=== PATIENT | male | born 1965 | race Caucasian/White ===

== ENCOUNTER 2019-02-14 06:56 | Emergency (ER) | payer OTHER ==
[2019-02-14 08:33] LABS: Urine Appearance Cloudy; Urine Bilirubin Negative (Negative); Urine Blood 2+ (Negative); Urine Color Yellow; Urine Glucose Negative (Negative); Urine Ketones Negative (Negative); Urine Nitrite Negative (Negative); Urine Protein Negative (Negative); Urine Specific Gravity 1.017 (1.010-1.030); Urine Urobilinogen Negative (Negative)
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
[2019-02-14 08:44] LABS: Urine Bacteria Absent (Absent); Urine Red Blood Cell 3+(>10/hpf) (Absent); Urine White Blood Cell 3+(>20/hpf) (Absent)
[2019-02-14] MEDS ORDERED: Ciprofloxacin TAB* 500 MG PO ONE (08:47)
[2019-02-14 09:09] VITALS: BP 147/89
--- NOTE | 2019-02-16 06:33 | ED ---
Imaging and Labs Follow Up Follow Up Type: Labs/Cultures Labs/Culture Result: Pulmonary urine culture shows greater than 100,000 group B strep. Patient treated with ciprofloxacin which is presumed effective in covering This bacteria. Waiting sensitivity report. Patient Communication/Plan: Patient treated appropriately. Nothing further this time. Provider Diagnoses: Urinary retention, UTI (urinary tract infection)
== END 2019-02-14 09:03 | disposition home or self-care (01) ==
LOC: ED 06:56
DX: N39.0 Urinary tract infection, site not specified (principal); R33.9 Retention of urine, unspecified; E78.00 Pure hypercholesterolemia, unspecified; Z88.0 Allergy status to penicillin; Z88.2 Allergy status to sulfonamides; Z88.8 Allergy status to other drugs, medicaments and biological substances
CPT/HCPCS: 81003; 81015; 87077; 87086; 99282; A9270-GY

== ENCOUNTER 2020-10-01 10:18 | Inpatient (IN) ==
[2020-10-01 10:41] LABS: ABS Basophils 0.1 10^3/ul (0-0.2); ABS Monocytes 0.5 10^3/ul (0-0.8); Eosinophil % 0.4 %; Hematocrit 45 % (42-52); Hemoglobin 15.5 g/dL (14.0-18.0); Lymphocyte % 11.6 %; Mean Corpuscular HGB Conc 34 g/dL (31-36); Mean Corpuscular Hemoglobin 30 pg (27-31); Mean Corpuscular Volume 86 fL (80-94); Mean Platelet Volume 8.1 fL (7.4-10.4); Platelet Count 217 10^3/uL (150-450); Red Blood Count 5.21 10^6 /uL (4.18-5.48); Red Cell Distribution Width 14 % (10-15); White Blood Count 8.7 10^3/uL (3.5-10.8)
[2020-10-01 10:51] LABS: INR 0.97 (0.86-1.15)
[2020-10-01 10:52] LABS: Albumin 4.5 g/dL (3.2-5.2); Anion Gap 10 mmol/L (2-11); CO2 Carbon Dioxide 26 mmol/L (22-32); Calcium 9.9 mg/dL (8.6-10.3); Chloride 101 mmol/L (101-111); Potassium 3.7 mmol/L (3.5-5.0); Sodium 137 mmol/L (135-145)
[2020-10-01 10:58] LABS: ALT 18 U/L (7-52); AST 16 U/L (13-39); Albumin/Globulin Ratio 1.5 (1-3); Alkaline Phosphatase 75 U/L (35-149); Blood Urea Nitrogen 23 mg/dL (6-24); EGFR Non-African American 88.4 (>60); Globulin 3.1 g/dL (2-4); Glucose 142 mg/dL (70-100); Total Protein 7.6 g/dL (6.4-8.9)
[2020-10-01 11:13] LABS: Troponin I 0.04 ng/mL (<0.03)
[2020-10-01] MEDS ORDERED: Ondansetron 4 mg VIAL 2 MG/ML 2 ml VIAL IV ONE ×2 (11:52→13:57)
[2020-10-01] MEDS ORDERED: Al Hydrox/Mg Hydrox/Simet LIQ 30 ML UDC PO ONE (14:08)
[2020-10-01] MEDS ORDERED: Heparin DRIP 25,000 UNITS BAG 25,000 UNITS/500 ML BAG IV SCH (16:00)
[2020-10-01] MEDS ORDERED: Heparin 5000 UNITS/ML 1 mL VIAL IV PRN (16:00)
[2020-10-01] MEDS ORDERED: Ondansetron 4 mg VIAL 2 MG/ML 2 ml VIAL IV PRN (17:23)
[2020-10-01] MEDS ORDERED: Nitro 2% OINT (Nitroglycerin) 1 INCH/PAK ONE (19:09)
[2020-10-01] MEDS ORDERED: Nitro 2% OINT (Nitroglycerin) 1 INCH/PAK TOPICAL ONE ×2 (19:09→19:12)
[2020-10-01] MEDS ORDERED: nitroGLYCERIN DRIP 25,000 MCG/250 ML BTL ONE ×2 (19:45→22:16)
[2020-10-01] MEDS ORDERED: nitroGLYCERIN DRIP 25,000 MCG/250 ML BTL IV SCH (20:00)
[2020-10-01 21:48] LABS: Troponin I 0.11 ng/mL (<0.03)
[2020-10-01] MEDS ORDERED: Metoprolol Tartrate 5 mg VIAL 5 ml VIAL (1 mg/ml) IV ONE (21:53)
[2020-10-01] MEDS ORDERED: Potassium Chlor 10 meq TAB PO ONE (22:13)
[2020-10-01] MEDS ORDERED: fentaNYL 100 mcg/2 ml 50 MCG/ML VIAL ONE (22:15)
[2020-10-01] MEDS ORDERED: Midazolam 5 mg/5 ml VIAL 1 mg/ml 5 ml VIAL (5 mg) ONE (22:15)
[2020-10-01] MEDS ORDERED: Heparin 1,000 UNIT/ML 10 ml (10,000 UNITS) CATHLAB/DIALYSIS ONE (22:16)
[2020-10-01] MEDS ORDERED: Heparin 2 UNITS/ML 1000 mls 2,000 ML IV ONE (22:16)
[2020-10-01] MEDS ORDERED: Lidocaine 1% VIAL 10 MG/ML VIAL ONE (22:16)
[2020-10-01] MEDS ORDERED: VERAPAMIL 2.5 MG/ML 2 ML VIAL ** 5 mg/2 ml ONE (22:16)
[2020-10-01] MEDS ORDERED: Iohexol 350 (CONTRAST) 200 ML MDV IV ONE (22:16)
[2020-10-01 22:19] LABS: INR 1.09 (0.86-1.15)
[2020-10-01 22:39] LABS: Troponin I 0.09 ng/mL (<0.03)
[2020-10-01] MEDS: NS 0.9% 1000 ml BAG 1,000 ML IV SCH (22:56)
[2020-10-01 23:03] LABS: Cholesterol 173 mg/dL; HDL Cholesterol 65.3 mg/dL; LDL Cholesterol 91 mg/dL; Triglycerides 84 mg/dL
[2020-10-01] MEDS ORDERED: Calcium Carb (TUMS) 500 mg CHEW TAB PO PRN (23:21)
[2020-10-02 05:03] LABS: Hematocrit 43 % (42-52); Hemoglobin 14.5 g/dL (14.0-18.0); Mean Corpuscular HGB Conc 34 g/dL (31-36); Mean Corpuscular Hemoglobin 29 pg (27-31); Mean Corpuscular Volume 88 fL (80-94); Mean Platelet Volume 8.1 fL (7.4-10.4); Platelet Count 197 10^3/uL (150-450); Red Blood Count 4.93 10^6 /uL (4.18-5.48); Red Cell Distribution Width 14 % (10-15); White Blood Count 11.4 10^3/uL (3.5-10.8)
[2020-10-02 05:19] LABS: Calcium 8.6 mg/dL (8.6-10.3); EGFR Non-African American 95.8 (>60); HDL Cholesterol 64.4 mg/dL; Potassium 4.1 mmol/L (3.5-5.0)
[2020-10-02 07:45] LABS: Magnesium 1.9 mg/dL (1.9-2.7); Phosphorus 3.2 mg/dL (2.5-5.0)
[2020-10-02] MEDS ORDERED: Dutasteride/Tamsulosin (NF) PO SCH (09:00)
[2020-10-02] MEDS: NS 0.9% 1000 ml BAG 1,000 ML IV SCH (11:18)
[2020-10-02] MEDS ORDERED: Iohexol 350 (CONTRAST) 500 ML MDV IV ONE (14:54)
[2020-10-02] MEDS ORDERED: NS 0.9% 1000 ml BAG 1,000 ML IV ONE (22:24)
[2020-10-02 22:33] LABS: ABS Basophils 0.1 10^3/ul (0-0.2); ABS Lymphocytes 0.6 10^3/ul (1.0-4.8); ABS Monocytes 0.6 10^3/ul (0-0.8); Eosinophil % 0.1 %; Hematocrit 40 % (42-52); Hemoglobin 13.7 g/dL (14.0-18.0); Lymphocyte % 7.3 %; Mean Corpuscular HGB Conc 34 g/dL (31-36); Mean Corpuscular Hemoglobin 30 pg (27-31); Mean Corpuscular Volume 87 fL (80-94); Mean Platelet Volume 8.5 fL (7.4-10.4); Platelet Count 170 10^3/uL (150-450); Red Blood Count 4.63 10^6 /uL (4.18-5.48); Red Cell Distribution Width 14 % (10-15); White Blood Count 8.4 10^3/uL (3.5-10.8)
[2020-10-02 22:51] LABS: Albumin 3.7 g/dL (3.2-5.2); Calcium 8.8 mg/dL (8.6-10.3); Potassium 4.1 mmol/L (3.5-5.0); Total Bilirubin 4.4 mg/dL (0.2-1.0)
[2020-10-02 22:57] LABS: Albumin/Globulin Ratio 1.3 (1-3); EGFR Non-African American 85.1 (>60); Globulin 2.8 g/dL (2-4); Total Protein 6.5 g/dL (6.4-8.9)
[2020-10-02 23:11] LABS: Urine Appearance Clear; Urine Bilirubin Negative (Negative); Urine Blood 1+ (Negative); Urine Color Amber; Urine Glucose Negative (Negative); Urine Ketones Negative (Negative); Urine Nitrite Negative (Negative); Urine Protein 1+(30 mg/dL) (Negative); Urine Specific Gravity 1.039 (1.002-1.030); Urine Urobilinogen Positive (Negative)
[2020-10-02 23:19] LABS: Urine Bacteria Absent (Absent); Urine Red Blood Cell Trace(0-2/hpf) (Absent); Urine Sperm Present (Absent); Urine White Blood Cell Absent (Absent)
[2020-10-02 23:37] LABS: C Reactive Protein 179.8 mg/L (<8.01)
[2020-10-03] MEDS ORDERED: Iohexol 300 (CONTRAST) 10 ML SDV IV ONE (05:07)
[2020-10-03] MEDS: NS 0.9% 1000 ml BAG 1,000 ML IV SCH ×2 (07:41→19:56)
[2020-10-03 08:04] LABS: ABS Eosinophils 0.1 10^3/ul (0-0.6); ABS Lymphocytes 0.7 10^3/ul (1.0-4.8); ABS Monocytes 0.6 10^3/ul (0-0.8); ABS Neutrophils 6.2 10^3/ul (1.5-7.7); Eosinophil % 0.9 %; Hematocrit 37 % (42-52); Hemoglobin 12.8 g/dL (14.0-18.0); Lymphocyte % 9.1 %; Mean Corpuscular HGB Conc 34 g/dL (31-36); Mean Corpuscular Hemoglobin 30 pg (27-31); Mean Corpuscular Volume 87 fL (80-94); Mean Platelet Volume 8.5 fL (7.4-10.4); Platelet Count 149 10^3/uL (150-450); Red Blood Count 4.29 10^6 /uL (4.18-5.48); Red Cell Distribution Width 14 % (10-15); White Blood Count 7.5 10^3/uL (3.5-10.8)
[2020-10-03 08:20] LABS: Albumin 3.4 g/dL (3.2-5.2); Albumin/Globulin Ratio 1.4 (1-3); Calcium 8.3 mg/dL (8.6-10.3); Direct Bilirubin 3.7 mg/dL (0.03-0.18); EGFR African American 109.8 (>60); EGFR Non-African American 90.8 (>60); Globulin 2.4 g/dL (2-4); Indirect Bilirubin 1.6 mg/dL (0.3-1.0); Potassium 3.8 mmol/L (3.5-5.0); Total Bilirubin 5.3 mg/dL (0.2-1.0); Total Protein 5.8 g/dL (6.4-8.9)
[2020-10-03 09:44] LABS: Troponin I 0.09 ng/mL (<0.03)
[2020-10-03] MEDS: cefTRIAXone 2 GM ADDV.VIAL 2 GM in NS 0.9% 100 ml BAG 100 ML IV SCH (10:01)
[2020-10-03] MEDS: metroNIDAZOLE IV 500 MG/100ML 500 MG/100 ML BAG IVPB SCH ×2 (11:12→16:31)
[2020-10-03 20:28] LABS: Hepatitis B Surface Antigen Nonreactive (Nonreactive)
[2020-10-03 20:33] LABS: Hepatitis A Ab IgM Negative (Negative)
[2020-10-03 20:34] LABS: Hepatitis B Core IgM Nonreactive (Nonreactive)
[2020-10-03 20:45] LABS: Hepatitis C Antibody Negative (Negative)
[2020-10-04] MEDS: metroNIDAZOLE IV 500 MG/100ML 500 MG/100 ML BAG IVPB SCH ×4 (01:32→23:56)
[2020-10-04 06:26] LABS: ABS Eosinophils 0.2 10^3/ul (0-0.6); ABS Lymphocytes 0.8 10^3/ul (1.0-4.8); ABS Monocytes 0.5 10^3/ul (0-0.8); ABS Neutrophils 3.9 10^3/ul (1.5-7.7); Eosinophil % 3.5 %; Hematocrit 37 % (42-52); Hemoglobin 12.3 g/dL (14.0-18.0); Lymphocyte % 14.7 %; Mean Corpuscular HGB Conc 34 g/dL (31-36); Mean Corpuscular Hemoglobin 30 pg (27-31); Mean Corpuscular Volume 88 fL (80-94); Mean Platelet Volume 8.5 fL (7.4-10.4); Platelet Count 148 10^3/uL (150-450); Red Blood Count 4.16 10^6 /uL (4.18-5.48); Red Cell Distribution Width 15 % (10-15); White Blood Count 5.4 10^3/uL (3.5-10.8)
[2020-10-04 06:45] LABS: Albumin 3.2 g/dL (3.2-5.2); Albumin/Globulin Ratio 1.2 (1-3); Calcium 8.1 mg/dL (8.6-10.3); EGFR African American 136.6 (>60); EGFR Non-African American 112.9 (>60); Globulin 2.6 g/dL (2-4); Potassium 3.9 mmol/L (3.5-5.0); Total Bilirubin 3.3 mg/dL (0.2-1.0); Total Protein 5.8 g/dL (6.4-8.9)
[2020-10-04] MEDS: cefTRIAXone 2 GM ADDV.VIAL 2 GM in NS 0.9% 100 ml BAG 100 ML IV SCH (08:11)
[2020-10-04] MEDS ORDERED: ceFOXitin 2 GM PREMIX 50 ML IVPB ONE (14:00)
[2020-10-04] MEDS ORDERED: Buffered Lidocaine 1% SYRIN 1 ml INTRADERM ONE (14:39)
[2020-10-04] MEDS ORDERED: DiMENhydriNATE IV 50 mg/ml 1 ml VIAL IV PUSH ONE (14:39)
[2020-10-04] MEDS ORDERED: DiMENhydriNATE IV 50 mg/ml 1 ml VIAL ONE (15:07)
[2020-10-04] MEDS ORDERED: Ondansetron 4 mg VIAL 2 MG/ML 2 ml VIAL ONE (15:38)
[2020-10-04] MEDS ORDERED: Lidocaine 2% PF 5 ML VIAL ONE (15:38)
[2020-10-04] MEDS ORDERED: Rocuronium 50 mg VIAL 10 mg/ml 5 ml VIAL (50 mg) ONE ×2 (15:38→16:00)
[2020-10-04] MEDS ORDERED: Dexamethasone IV 4 MG/ML VIAL 1 ml VIAL ONE (15:38)
[2020-10-04] MEDS ORDERED: Propofol 10 MG/ML 20 ML BTL ONE (15:38)
[2020-10-04] MEDS ORDERED: fentaNYL 250 mcg/5 ml 50 MCG/ML 5 ml VIAL (250 MCG) ONE (15:39)
[2020-10-04] MEDS ORDERED: Midazolam 2 mg/2 ml VIAL 1 mg/ml 2 ml VIAL (2 mg) ONE (15:39)
[2020-10-04] MEDS ORDERED: HYDROmorphone 1 MG/1 ML SYRINGE IV SLOW PU PRN (18:38)
[2020-10-04] MEDS ORDERED: HYDROcodone/ACETAMIN 5/325 mg TAB PO PRN (18:52)
[2020-10-04] MEDS: Lactated Ringers 1000 ml BAG 1,000 ML IV SCH (21:03)
[2020-10-05 05:54] LABS: ABS Lymphocytes 0.5 10^3/ul (1.0-4.8); ABS Monocytes 0.3 10^3/ul (0-0.8); ABS Neutrophils 4.1 10^3/ul (1.5-7.7); Eosinophil % 0.2 %; Hematocrit 37 % (42-52); Hemoglobin 12.5 g/dL (14.0-18.0); Lymphocyte % 10.4 %; Mean Corpuscular HGB Conc 34 g/dL (31-36); Mean Corpuscular Hemoglobin 29 pg (27-31); Mean Corpuscular Volume 87 fL (80-94); Mean Platelet Volume 8.6 fL (7.4-10.4); Platelet Count 159 10^3/uL (150-450); Red Blood Count 4.26 10^6 /uL (4.18-5.48); Red Cell Distribution Width 14 % (10-15); White Blood Count 4.9 10^3/uL (3.5-10.8)
[2020-10-05] MEDS: Lactated Ringers 1000 ml BAG 1,000 ML IV SCH (06:04)
[2020-10-05 06:09] LABS: Albumin 3.3 g/dL (3.2-5.2); Albumin/Globulin Ratio 1.3 (1-3); Calcium 8.5 mg/dL (8.6-10.3); EGFR African American 148.5 (>60); EGFR Non-African American 122.7 (>60); Globulin 2.6 g/dL (2-4); Potassium 4.1 mmol/L (3.5-5.0); Total Bilirubin 1.4 mg/dL (0.2-1.0); Total Protein 5.9 g/dL (6.4-8.9)
[2020-10-05] MEDS: metroNIDAZOLE IV 500 MG/100ML 500 MG/100 ML BAG IVPB SCH (07:53)
[2020-10-05] MEDS: cefTRIAXone 2 GM ADDV.VIAL 2 GM in NS 0.9% 100 ml BAG 100 ML IV SCH (09:33)
[2020-10-05 11:05] VITALS: BP 121/74
[2020-10-05 14:58] LABS: Anaplasma phagocytophilum Negative (Negative); B. miyamotoi PCR, B Negative (Negative); Babesia divergens/MO-1 Negative (Negative); Babesia ducani Negative (Negative); Ehrlichia chaffeensis Negative (Negative); Ehrlichia ewingii/canis Negative (Negative); Ehrlichia muris eauclairensis Negative (Negative)
== END 2020-10-05 12:20 | disposition home or self-care (01) | DRG 418 ==
LOC: ED 10:18 → MEDTELE 18:35 → ICU 19:36 → MEDTELE 10-02 11:33 → MED 10-03 02:25 → SSU 10-04 19:50
PROVIDERS: ADMIT Internal Medicine; ATTEND Hospitalist